=== PATIENT | male | born 1935 | race Caucasian/White ===

== ENCOUNTER 2016-05-23 15:31 | Inpatient (IN) | payer MEDICARE, OTHER ==
[2016-05-23] MEDS ORDERED: ASPIRIN 81 MG CHEWABLE TABLETS PO ONE (16:27)
--- NOTE | 2016-05-23 16:27 | PDOC ---
History of Present Illness - General History Source: Patient Exam Limitations: No Limitations - History of Present Illness Initial Comments: 05/23/16 16:52 The patient is a 80 yo M with significant past medical history of diabetes and hypertension who presents to the emergency department with chest pain for 5 days. The patient states he was shoveling his driveway 5 days ago during the snowstorm when his pain started. His pain is sharp and intermittent in severity but always there. He also stated that the pain radiated to his right arm. The patient reports some dyspnea on exertion but is not SOB at rest. The patient states that he has little pain in the chest right now. He denies any history of chest pain or heart problems. 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 He does report some associated headache and lightheadedness. The patient denies any blurry vision. The patient denies any abdominal pain, nausea, or vomiting. He denies recent illness, fevers, or chills. The patient was seen earlier today at the clinic at [facility] and was referred to the ED. The patient took 2 ASA earlier today with slight relief of his discomfort. <Reba Barber - Last Filed: 05/23/16 16:54> <Juani Jackson - Last Filed: 05/28/16 08:17> - General Chief Complaint: Chest Pain Stated Complaint: CHEST PAIN Time Seen by Provider: 05/23/16 15:44 Past History <Reba Barber - Last Filed: 05/23/16 16:54> - Past Medical History Dementia: Yes Diabetes: Yes HTN: Yes Hypercholesterolemia: Yes Liver Disease: Yes (INFLAMMATORY DISEASE.) Other medical history: VERTIGO. - Surgical History Abdominal Surgery: Yes Appendectomy: Yes - Psycho/Social/Smoking Cessation Hx Anxiety: No Suicidal Ideation: No Smoking History: Former smoker Have you smoked in the past 12 months: No If you are a former smoker, when did you quit?: 2008 Information on smoking cessation initiated: No Hx Alcohol Use: No Drug/Substance Use Hx: No Substance Use Type: None <Juani Jackson - Last Filed: 05/28/16 08:17> - Past Medical History Allergies/Adverse Reactions: Allergies Allergy/AdvReac Type Severity Reaction Status Date / Time No Known Allergies Allergy Verified 05/23/16 15:42 Home Medications: Ambulatory Orders Aspirin [ASA -] 81 mg PO DAILY 05/23/16 Ibuprofen [Motrin -] 200 mg PO QID PRN 05/23/16 Ketoconazole 2% Cream [Nizoral 2% Cream -] 1 applic TP DAILY 05/23/16 Lisinopril 10 mg PO DAILY 05/23/16 Meclizine HCl 25 mg PO TID PRN 05/23/16 Metformin HCl 500 mg PO BID 05/23/16 Naproxen [Naprosyn -] 500 mg PO BID 05/23/16 Simvastatin 20 mg PO HS 05/23/16 Vardenafil HCl [Levitra] 10 mg PO PRN PRN 05/23/16 Zolpidem Tartrate 5 mg PO HS 05/23/16 Review of Systems - Review of Systems Able to Perform ROS?: Yes Comments:: 05/23/16 16:52 GENERAL/CONSTITUTIONAL: No fever or chills. No weakness. HEAD, EYES, EARS, NOSE AND THROAT: No change in vision. No ear pain or discharge. No sore throat. CARDIOVASCULAR: +Chest pain, +dyspnea on exertion. RESPIRATORY: No cough, wheezing, or hemoptysis. GASTROINTESTINAL: No nausea, vomiting, diarrhea or constipation. GENITOURINARY: No dysuria, frequency, or change in urination. MUSCULOSKELETAL: No joint or muscle swelling or pain. No neck or back pain. SKIN: No rash NEUROLOGIC: +Headache, +lightheadedness. No vertigo, loss of consciousness, or change in strength/sensation. ENDOCRINE: No increased thirst. No abnormal weight change. HEMATOLOGIC/LYMPHATIC: No anemia, easy bleeding, or history of blood clots. ALLERGIC/IMMUNOLOGIC: No hives or skin allergy. <Reba Barber - Last Filed: 05/23/16 16:54> *Physical Exam - Vital Signs Last Vital Signs Temp Pulse Resp BP Pulse Ox 96.5 F L 74 14 160/88 98 05/23/16 15:41 05/23/16 15:41 05/23/16 15:41 05/23/16 15:41 05/23/16 15:41 - Physical Exam Comments: 05/23/16 16:55 GENERAL: Awake, alert, and fully oriented, in no acute distress HEAD: No signs of trauma EYES: PERRLA, EOMI, sclera anicteric, conjunctiva clear ENT: Auricles normal inspection, hearing grossly normal, nares patent, oropharynx clear without exudates. Moist mucosa NECK: Normal ROM, supple, no lymphadenopathy, JVD, or masses LUNGS: Breath sounds equal, clear to auscultation bilaterally. No wheezes, and no crackles HEART: Regular rate and rhythm, normal S1 and S2, no murmurs, rubs or gallops ABDOMEN: Soft, nontender, normoactive bowel sounds. No guarding, no rebound. No masses EXTREMITIES: Normal range of motion, no edema. No clubbing or cyanosis. No cords, erythema, or tenderness NEUROLOGICAL: Cranial nerves II through XII grossly intact. Normal speech, normal gait SKIN: Warm, Dry, normal turgor, no rashes or lesions noted. <Reba Barber - Last Filed: 05/23/16 16:54> - Vital Signs Last Vital Signs Temp Pulse Resp BP Pulse Ox 96.5 F L 74 14 160/88 98 05/23/16 15:41 05/23/16 15:41 05/23/16 15:41 05/23/16 15:41 05/23/16 15:41 <Juani Jackson - Last Filed: 05/28/16 08:17> ED Treatment Course - LABORATORY CBC & Chemistry Diagram: 05/24/16 05:35 05/24/16 05:35 - RADIOLOGY Radiology Studies Ordered: Category Date Time Status CHEST X-RAY PORTABLE* [RAD] Stat Radiology 05/23/16 15:46 Ordered <Juani Jackson - Last Filed: 05/28/16 08:17> Medical Decision Making - Medical Decision Making Pt sent for exertional cp, abnormal EKG. Will admit to tele for further workup and cardio evaluation. <Juani Jackson - Last Filed: 05/28/16 08:17> *DC/Admit/Observation/Transfer - Attestations Scribe Attestion: 05/23/16 16:52 Documentation prepared by Reba Barber, acting as medical claims analyst for Juani Jackson MD. <Reba Barber - Last Filed: 05/23/16 16:54> - Discharge Dispostion Admit: Yes <Juani Jackson - Last Filed: 05/28/16 08:17> Diagnosis at time of Disposition: Chest pain Qualifiers: Chest pain type: unspecified Qualified Code(s): R07.9 - Chest pain, unspecified - Discharge Dispostion Disposition: TRANSFER ACUTE CARE/OTHER HOSP Condition at time of disposition: Stable
[2016-05-23] MEDS ORDERED: ASPIRIN 81 MG CHEWABLE TABLETS ONE (16:41)
[2016-05-23 17:35] LABS: BASOPHIL 0.7 % (0-2.0); EOSINOPHIL 2.5 % (0-4.5); MCH 30.4 pg (25.7-33.7); MCHC 33.3 g/dl (32.0-35.9); MEAN CELL VOLUME 91.3 fl (80-96); NEUTROPHILS 43.9 % (42.8-82.8); PLATELET COUNT 207 K/MM3 (134-434); RDW 13.4 % (11.9-15.9); WHITE BLOOD COUNT 5.5 K/mm3 (4.0-10.0)
[2016-05-23 18:05] LABS: INR 1.02 (0.82-1.09); PROTHROMBIN TIME (PATIENT) 11.2 SEC (9.98-11.88)
[2016-05-23 18:16] LABS: ALBUMIN 4.1 g/dl (3.4-5.0); ANION GAP 9 (8-16); BILIRUBIN,TOTAL 0.8 mg/dL (0.2-1.0); CALCIUM 8.4 mg/dL (8.5-10.1); CO2 25 mmol/L (21-32); GLUCOSE,RANDOM 130 mg/dL (74-106); SGOT/AST 32 U/L (15-37); SGPT/ALT 43 U/L (12-78); TOT PROT 7.5 g/dl (6.4-8.2)
[2016-05-23 18:19] LABS: ALK PHOS 85 U/L (45-117); TROPONIN I 0.12 ng/ml (0.00-0.05)
--- NOTE | 2016-05-23 19:03 | PN ---
<Jb Elizabeth - Last Filed: 05/23/16 19:03> Teaching Attending Note Name of Resident: Es Castillo ATTENDING PHYSICIAN STATEMENT I saw and evaluated the patient. I reviewed the resident's note and discussed the case with the resident. I agree with the resident's findings and plan as documented. SUBJECTIVE: OBJECTIVE: ASSESSMENT AND PLAN: <SudhaDakota - Last Filed: 05/23/16 20:35> Teaching Attending Note ATTENDING PHYSICIAN STATEMENT I saw and evaluated the patient. I reviewed the resident's note and discussed the case with the resident. I agree with the resident's findings and plan as documented. SUBJECTIVE: Patient is a 80 year old male, former smoker, with a past medical history of NIDDM, HTN, HLD, and vertigo who presented to the ED with chest pain for 5 days. The patient stated that he was shoveling his driveway when he started experiencing right sided chest tightness. The patient described the pain as intermittent in nature and radiating to the right arm. The patient also report dyspnea on exertion. He also notes that he presented to a clinic today and was evaluated for the chest pain and reports that his ECG had abnormalities. Patient denies having ECHO or stress test in the past. Denies fever, chills, nausea, vomiting, diarrhea, constipation, and headache. OBJECTIVE: Physical: VS: Last Vital Signs Temp Pulse Resp BP Pulse Ox 96.5 F L 74 16 121/79 98 05/23/16 15:41 05/23/16 16:55 05/23/16 16:55 05/23/16 16:55 05/23/16 16:55 GEN: NAD HEENT: NCAT, PERRL CARD: RRR, S1 S2 RESP: CTAB ABD: NT, BWS x4 EXT: - CCE Labs: CBCD WBC 5.5 K/mm3 (4.0-10.0) 05/23/16 15:50 RBC 4.96 M/mm3 (4.00-5.60) 05/23/16 15:50 Hgb 15.1 GM/dL (11.7-16.9) 05/23/16 15:50 Hct 45.3 % (35.4-49) 05/23/16 15:50 MCV 91.3 fl (80-96) 05/23/16 15:50 MCHC 33.3 g/dl (32.0-35.9) 05/23/16 15:50 RDW 13.4 % (11.9-15.9) 05/23/16 15:50 Plt Count 207 K/MM3 (134-434) 05/23/16 15:50 MPV 8.0 fl (7.5-11.1) 05/23/16 15:50 CMP Sodium 139 mmol/L (136-145) 05/23/16 15:50 Potassium 4.0 mmol/L (3.5-5.1) 05/23/16 15:50 Chloride 105 mmol/L (98-107) 05/23/16 15:50 Carbon Dioxide 25 mmol/L (21-32) 05/23/16 15:50 Anion Gap 9 (8-16) 05/23/16 15:50 BUN 13 mg/dL (7-18) 05/23/16 15:50 Creatinine 1.0 mg/dL (0.7-1.3) 05/23/16 15:50 Creat Clearance w eGFR > 60 (>60) 05/23/16 15:50 Calcium 8.4 mg/dL (8.5-10.1) L 05/23/16 15:50 Total Bilirubin 0.8 mg/dL (0.2-1.0) 05/23/16 15:50 AST 32 U/L (15-37) 05/23/16 15:50 ALT 43 U/L (12-78) 05/23/16 15:50 Alkaline Phosphatase 85 U/L (45-117) 05/23/16 15:50 Total Protein 7.5 g/dl (6.4-8.2) 05/23/16 15:50 Albumin 4.1 g/dl (3.4-5.0) 05/23/16 15:50 ECG Impression: NSR TWI V1-V6 No ST elevations ASSESSMENT AND PLAN: Patient is a 80 year old male with a past medical history of NIDDM, HTN, HLD, and vertigo who presented with chest pain being admitted for NSTEMI. 1) NSTEMI - Heart score 7 - Trend troponins/ECG - Lovenox 80 bid - Plavix - Aspirin - Morphine/nitro prn chest pain - Cardiology consult - Oxygen - Beta rm - ECHO complete 2) Hypertension - Lisinopril - Beta rm 3) HDL - Check lipid panel - Continue with statin 4) Diabetes - Check A1C - Finger sticks - RAISS 5) Vertigo - Continue with meclizine prn 6) Questionable history ED - Hold Vardenafil due to possible hypotension with added BP med 7)DVT - Lovenox Admit to med tele Documentation prepared by Dakota Haley, acting as adjunct faculty for medical terminology for Jb Elizabeth D.O.
[2016-05-23] MEDS ORDERED: CLOPIDOGREL BISULFATE 300 MG TABLET PO ONE (20:41)
[2016-05-23] MEDS ORDERED: NITROGLYCERIN SUBLINGUAL 1/200 0.3 MG BTL SL PRN (20:42)
[2016-05-23] MEDS ORDERED: morphine CARPU-JECT 2 MG/1 ML DISP.SYRIN IVPUSH PRN (20:43)
--- NOTE | 2016-05-23 20:45 | MSN ---
Admitting History and Physical - Primary Care Physician PCP: Dr. Moreno - Admission Chief Complaint: Chest pain History of Present Illness: 80 year old male with past medical history of NIDDM, HTN and vertigo presents with 5 days of right sided non-radiating, tight chest pain that occurred while he was shoveling the driveway. The pain is not constant and only occurs when he exerts himself. He says he has had new onset dyspnea with exertion since he first experienced the pain that gets better when he sits for 5-10 minutes. He went to his PCP this afternoon and was referred to [facility] for further testing. He has had a cough at night when he goes to bed. He normally sleeps with two pillows at night. He received two aspirin today which helped. Nothing makes the pain worse except when he exerts himself. He denies fever, chills, recent illness, back pain, n/v, diarrhea and loss of appetite. 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 Cardiovascular: Yes: HTN Pulmonary: Yes: Other Endocrine: Yes: Diabetes Mellitus (Non insulin dependent) - Past Surgical History Past Surgical History: Yes: Appendectomy - Smoking History Smoking history: Former smoker Have you smoked in the past 12 months: No Aproximately how many cigarettes per day: 20 If you are a former smoker, when did you quit?: 2001 - Alcohol/Substance Use Hx Alcohol Use: Yes Number of Drinks Daily: 1 - Social History Usual Living Arrangement: Yes: With Child Home Medications - Allergies Allergies/Adverse Reactions: Allergies Allergy/AdvReac Type Severity Reaction Status Date / Time No Known Allergies Allergy Verified 05/23/16 15:42 - Home Medications Home Medications: Ambulatory Orders Aspirin [ASA -] 81 mg PO DAILY 05/23/16 Ibuprofen [Motrin -] 200 mg PO QID PRN 05/23/16 Ketoconazole 2% Cream [Nizoral 2% Cream -] 1 applic TP DAILY 05/23/16 Lisinopril 10 mg PO DAILY 05/23/16 Meclizine HCl 25 mg PO TID PRN 05/23/16 Metformin HCl 500 mg PO BID 05/23/16 Naproxen [Naprosyn -] 500 mg PO BID 05/23/16 Simvastatin 20 mg PO HS 05/23/16 Vardenafil HCl [Levitra] 10 mg PO PRN PRN 05/23/16 Zolpidem Tartrate 5 mg PO HS 05/23/16 Review of Systems - Review of Systems Constitutional: reports: No Symptoms Eyes: reports: No Symptoms Cardiovascular: reports: Chest Pain Respiratory: reports: Cough, Exercise Intolerance, SOB on Exertion Gastrointestinal: reports: No Symptoms Genitourinary: reports: No Symptoms Musculoskeletal: reports: No Symptoms Neurological: reports: Dizziness, Headache Endocrine: reports: No Symptoms Physical Examination Vital Signs: Vital Signs Temperature 96.5 F L 05/23/16 15:41 Pulse Rate 68 05/23/16 19:50 Respiratory Rate 20 05/23/16 19:50 Blood Pressure 132/73 05/23/16 19:50 O2 Sat by Pulse Oximetry (%) 98 05/23/16 19:50 Constitutional: Yes: Well Nourished, No Distress, Calm Eyes: Yes: WNL HENT: Yes: Atraumatic, Normocephalic Cardiovascular: Yes: Regular Rate and Rhythm Respiratory: Yes: Regular, Other (Poor airflow throughout lungs) Gastrointestinal: Yes: WNL, Normal Bowel Sounds, Soft Extremities: Yes: WNL Edema: No Integumentary: Yes: Tattoos Neurological: Yes: WNL, Alert, Oriented Labs: Troponin 0.12 Imaging - Results Chest X-ray: Report Reviewed, Image Reviewed (No acute process) EKG: Report Reviewed, Image Reviewed (ST segment depression) Assessment/Plan 80 year old man with past medical history of NIDDM, HTN and vertigo who presnts with 5 days of right sided chest pain. Chest pain -Admit to telemetry and observation -Supplimental 02, nitroglycerin, metoprolol, atorvastatin, aspirin, lovenox -Trend troponin -TSH with free T4 -Lipid panel -Echo -Cardiology consult -Low salt diet
[2016-05-23] MEDS ORDERED: MECLIZINE HCL 25 MG TABLET (FP) PO PRN (20:46)
--- NOTE | 2016-05-23 21:01 | HP ---
CHIEF COMPLAINT: "I came because of chest pain" PCP: Dr Moreno HISTORY OF PRESENT ILLNESS: This is a 80 yo M with PMH of NIDDM, HTN, questionable CHF and vertigo, who presents due to chest pain. He was shoveling snow 5 days ago when he started experiencing sharp R sided chest pain, nonradiating with some associated sob and dizziness. pain resolved spontaneously after 10 minutes of rest. He has since been experiencing similar exertional pain on and off, relieved by rest. his exercise tolerance has decreased. He also noticed some nocturnal cough over the past 5 days w/o orthopnea. He has had mild chest pain on rare occasions before but not this severe or frequent. He denies associated palpitations, LOC, diaphoresis, n/v, abd pain, anorexia, weight gain or edema. He denies diarrhea, constipation, dysuria ore recent illness. He was seen by his pcp earlier today, who did an EKG and referred him to ED because of abnormal results. In Ed his chest pain resolved spontaneously. ER course was notable for: (1)labs (2)EKG CXR (3)asa Recent Travel: denies PAST MEDICAL HISTORY: as above PAST SURGICAL HISTORY: appendectomy Social History: lives with daughter Smoking:past 50 pack year smoker Alcohol:1 shot of lawrence per night Drugs:denies Family History: Allergies No Known Allergies Allergy (Verified 05/23/16 15:42) HOME MEDICATIONS: Medication Instructions Recorded Aspirin [ASA -] 81 mg PO DAILY 05/23/16 Ibuprofen [Motrin -] 200 mg PO QID PRN 05/23/16 Ketoconazole 2% Cream [Nizoral 2% 1 applic TP DAILY 05/23/16 Cream -] Lisinopril 10 mg PO DAILY 05/23/16 Meclizine HCl 25 mg PO TID PRN 05/23/16 Metformin HCl 500 mg PO BID 05/23/16 Naproxen [Naprosyn -] 500 mg PO BID 05/23/16 Simvastatin 20 mg PO HS 05/23/16 Vardenafil HCl [Levitra] 10 mg PO PRN PRN 05/23/16 Zolpidem Tartrate 5 mg PO HS 05/23/16 REVIEW OF SYSTEMS CONSTITUTIONAL: Absent: fever, chills, diaphoresis, generalized weakness,loss of appetite, weight change HEENT: Absent: rhinorrhea, nasal congestion, throat pain CARDIOVASCULAR: Absent: syncope, palpitations, irregular heart rate, lightheadedness, peripheral edema RESPIRATORY: Absent: wheezing, stridor, hemoptysis GASTROINTESTINAL: Absent: abdominal pain, abdominal distension, nausea, vomiting, diarrhea, constipation GENITOURINARY: Absent: dysuria MUSCULOSKELETAL: Absent: myalgia, arthralgia SKIN: Absent: rash HEMATOLOGIC/IMMUNOLOGIC: Absent: easy bleeding, easy bruising ENDOCRINE: Absent: unexplained weight gain, unexplained weight loss, heat intolerance, cold intolerance NEUROLOGIC: Absent: headache, focal weakness or paresthesias, dizziness, PSYCHIATRIC: Absent: anxiety, depression PHYSICAL EXAMINATION Vital Signs - 24 hr 05/23/16 19:50 Pulse Rate [ 68 Left Radial] Respiratory 20 Rate Blood Pressure 132/73 [Right Arm] O2 Sat by Pulse 98 Oximetry (%) GENERAL: Awake, alert, and fully oriented, in no acute distress. HEAD: Normal with no signs of trauma. EYES: Pupils equal, round and reactive to light, extraocular movements intact, sclera anicteric, conjunctiva clear. EARS, NOSE, THROAT: Moist mucous membranes. NECK: supple without JVD LUNGS: diffusely reduced air movement, coarse breath sounds. No ronchi HEART: Regular rate and rhythm, normal S1 and S2 ABDOMEN: Soft, nontender, mildly distended, normoactive bowel sounds. MUSCULOSKELETAL: No CVA tenderness. UPPER EXTREMITIES: 2+ pulses, warm, well-perfused. No cyanosis. No peripheral edema. LOWER EXTREMITIES: 2+ pulses, warm, well-perfused. No calf tenderness. No peripheral edema. NEUROLOGICAL: Cranial nerves II-XII grossly intact. Normal speech. PSYCHIATRIC: Cooperative. Good eye contact. Appropriate mood and affect. SKIN: Warm, dry Laboratory Tests 05/23/16 05/23/16 15:50 15:50 WBC 5.5 Hgb 15.1 Hct 45.3 Plt Count 207 Sodium 139 Potassium 4.0 Chloride 105 Carbon Dioxide 25 Anion Gap 9 BUN 13 Creatinine 1.0 Creat Clearance w eGFR > 60 Random Glucose 130 H Calcium 8.4 L Total Bilirubin 0.8 AST 32 ALT 43 Alkaline Phosphatase 85 Creatine Kinase 141 Troponin I 0.12 H Total Protein 7.5 Albumin 4.1 ASSESSMENT/PLAN: This is a 80 yo M with PMH of NIDDM, HTN, questionable CHF and vertigo, who presents due to chest pain on exertion CXR unremarkable EKG: prolonged QT, st inversions in leads v1-6 trop 0.12 NSTEMI -in setting of stable angina -abnormal EKG -HEART score =7 -trop 0.12; trend -tele monitoring -plavix 300 now, then 74 daily -asa loaded, 81 daily -coreg -marie 80 bid -NTG PRN -Morphine PRN -O2 NC PRN -TTE -TFT's -Cardio consult -will likely require stress test Questionable hx of CHF -patient appears dry; bun/creat 25/05 -no basilar ronchi, no LE edema -unlikely in CHF -f/u echo NIDDM -A1c -fingerstick TIDAC -novolog sliding scale HTN -Lisinopril HLD -atorvastatin 20 HS -Lipid panel Vertigo -meclozine prn FEN no IVF lytes stable DVT GI PPX: marie, scd, diet Diabetic diet Dispo: admit to med richar Problem List - Problem (1) Chest pain Code(s): R07.9 - CHEST PAIN, UNSPECIFIED Qualifiers: Chest pain type: unspecified Qualified Code(s): R07.9 - Chest pain, unspecified (2) Diabetes Code(s): E11.9 - TYPE 2 DIABETES MELLITUS WITHOUT COMPLICATIONS (3) HTN (hypertension) Code(s): I10 - ESSENTIAL (PRIMARY) HYPERTENSION (4) HLD (hyperlipidemia) Code(s): E78.5 - HYPERLIPIDEMIA, UNSPECIFIED (5) NSTEMI (non-ST elevated myocardial infarction) Code(s): I21.4 - NON-ST ELEVATION (NSTEMI) MYOCARDIAL INFARCTION Visit type - Emergency Visit Emergency Visit: Yes ED Registration Date: 05/23/16 Care time: The patient presented to the Emergency Department on the above date and was hospitalized for further evaluation of their emergent condition. - New Patient This patient is new to me today: Yes Date on this admission: 05/23/16 - Critical Care Critical Care patient: No
[2016-05-23] MEDS ORDERED: ATORVASTATIN CA 20 MG TABLET (FP) PO SCH (22:00)
[2016-05-23] MEDS ORDERED: ZOLPIDEM TARTRATE 5 MG TABLET PO PRN (22:00)
[2016-05-23] MEDS: ENOXAPARIN NA (PORCINE) 80 MG/0.8 ML DISP.SYRIN SQ SCH (23:11)
[2016-05-23] MEDS: CARVEDILOL 3.125 MG TABLET (FP) PO SCH (23:11)
[2016-05-24 01:04] VITALS: BMI 29.4
[2016-05-24] MEDS ORDERED: INSULIN SLIDING SCALE (NOVOLOG) 1 VIAL SQ SCH ×2 (07:00→11:00)
[2016-05-24 07:41] LABS: MCH 31.3 pg (25.7-33.7); MCHC 33.9 g/dl (32.0-35.9); MEAN CELL VOLUME 92.4 fl (80-96); MEAN PLT VOLUME 7.9 fl (7.5-11.1); PLATELET COUNT 186 K/MM3 (134-434); RDW 13.3 % (11.9-15.9); WHITE BLOOD COUNT 4.8 K/mm3 (4.0-10.0)
[2016-05-24 08:32] LABS: THYROID STIMULATING HORMONE 2.18 uIU/ml (0.358-3.74)
[2016-05-24 09:13] LABS: CALCIUM 8.7 mg/dL (8.5-10.1); CREATININE 1.1 mg/dL (0.7-1.3); MAGNESIUM 2.3 mg/dL (1.8-2.4); PHOSPHOROUS 3.7 mg/dL (2.5-4.9); TROPONIN I 0.08 ng/ml (0.00-0.05)
[2016-05-24] MEDS ORDERED: LISINOPRIL 10 MG TABLET (FP) PO SCH (10:00)
[2016-05-24] MEDS ORDERED: CLOPIDOGREL BISULFATE 75 MG TABLET (FP) PO SCH (10:00)
[2016-05-24] MEDS ORDERED: ASPIRIN 81 MG CHEWABLE TABLETS PO SCH (10:00)
--- NOTE | 2016-05-24 10:01 | PN ---
Physical Exam: SUBJECTIVE: Patient seen and examined. No chest pain or SOB. Complaining of neck pain. OBJECTIVE: Hospital day #1 for this 80 year old male with a history of NIDDM, HTN, ?CHF, and vertigo who presented to the ED yesterday complaining of intermittent chest pain and decreased ET for 5 days. Workup to date includes: -EKG: NSR at 73bpm, T inversions V1-V6, I, possible anterolateral ischemia -Troponin initially 0.12, then 0.11, then 0.08 -HgbA1C 8.2 -CXR: No acute process Vital Signs Period Temp Pulse Resp BP Sys/[place] Pulse Ox Last 24 Hr 97.9 F-97.9 F 63-73 20-20 100-127/57-70 95 GENERAL: The patient is awake, alert, and fully oriented, in no acute distress. HEAD: Normal with no signs of trauma. EYES: PERRL, extraocular movements intact, sclera anicteric, conjunctiva clear. No ptosis. ENT: Ears normal, nares patent, oropharynx clear without exudates, moist mucous membranes. NECK: Trachea midline, full range of motion, supple. No midline vertebral tenderness. LUNGS: Breath sounds equal, clear to auscultation bilaterally, no wheezes, no crackles, no accessory muscle use. HEART: Systolic murmur. Regular rate and rhythm, S1, S2, rub or gallop. ABDOMEN: Soft, nontender, nondistended, normoactive bowel sounds, no guarding, no rebound, no hepatosplenomegaly, no masses. EXTREMITIES: 2+ pulses, warm, well-perfused, no edema. NEUROLOGICAL: Cranial nerves II through XII grossly intact. Normal speech, gait not observed. PSYCH: Normal mood, normal affect. SKIN: Warm, dry, normal turgor, no rashes or lesions noted Laboratory Results - last 24 hr 05/23/16 05/24/16 05/24/16 23:00 05:35 05:35 WBC 4.8 RBC 4.97 Hgb 15.6 Hct 46.0 MCV 92.4 MCHC 33.9 RDW 13.3 Plt Count 186 MPV 7.9 Sodium 139 Potassium 4.2 Chloride 103 Carbon Dioxide 24 Anion Gap 12 BUN 13 Creatinine 1.1 POC Glucometer Random Glucose 221 H D Hemoglobin A1c % Calcium 8.7 Phosphorus 3.7 Magnesium 2.3 Troponin I 0.11 H 0.08 H TSH Free T4 05/24/16 05/24/16 05/24/16 05:35 05:35 05:35 WBC RBC Hgb Hct MCV MCHC RDW Plt Count MPV Sodium Potassium Chloride Carbon Dioxide Anion Gap BUN Creatinine POC Glucometer Random Glucose Hemoglobin A1c % 8.2 H Calcium Phosphorus Magnesium Troponin I TSH 2.18 Free T4 1.00 05/24/16 06:09 WBC RBC Hgb Hct MCV MCHC RDW Plt Count MPV Sodium Potassium Chloride Carbon Dioxide Anion Gap BUN Creatinine POC Glucometer 227 Random Glucose Hemoglobin A1c % Calcium Phosphorus Magnesium Troponin I TSH Free T4 Active Medications Generic Name Dose Route Start Last Admin Trade Name Freq PRN Reason Stop Dose Admin Aspirin 81 mg 05/24/16 10:00 Asa - PO DAILY [facility] Atorvastatin Calcium 20 mg 05/23/16 22:00 05/23/16 23:11 Lipitor - PO 20 mg HS REILLY Administration Carvedilol 3.125 mg 05/23/16 22:00 05/23/16 23:11 Coreg - PO 3.125 mg BID REILLY Administration Clopidogrel Bisulfate 75 mg 05/24/16 10:00 Plavix - PO DAILY [facility] Enoxaparin Sodium 80 mg 05/23/16 22:00 05/23/16 23:11 Lovenox - SQ 80 mg BID REILLY Administration Insulin Aspart 1 vial 05/24/16 07:00 05/24/16 06:42 Novolog Vial Sliding Scale - SQ Not Given TIDAC [facility] Protocol Lisinopril 10 mg 05/24/16 10:00 Prinivil PO DAILY [facility] Meclizine HCl 25 mg 05/23/16 20:46 Antivert - PO Q8H PRN dizziness Morphine Sulfate 0.5 mg 05/23/16 20:43 Morphine Injection - IVPUSH Q30M PRN PAIN Zolpidem Tartrate 5 mg 05/23/16 22:00 Ambien - PO HS PRN ASSESSMENT/PLAN: 80 year old male admitted with chest pain. 1. Cardiac NSTEMI -Continue telemetry monitoring -Troponins trending down -Continue Lovenox 80 bid -Continue Plavix 75mg daily -Continue Aspirin 81mg daily (received 324mg yesterday) -Continue morphine/ntg prn chest pain -Continue Carvedilol 3.125mg bid -Increase Atorvastatin to 80mg hs -Supplemental O2 as needed to maintain saturation -Follow up echocardiogram -Transfer to [facility] for cath when bed available HTN -At goal -Continue Lisinopril, Carvedilol HLD -Follow up lipid profile -Atorvastatin as above 2. Endocrine: DM -A1C 8.2% -FSACHS -ISS -Diabetic diet 3. Neuro: Vertigo -No active issues -Continue Meclizine prn Neck pain -Mild, paravertebral -Trial of Tylenol 4. : ED -Hold Vardenafil 5. DVT ppx -Therapeutic Lovenox Dispo: Transfer for cardiac cath. Visit type - Emergency Visit Emergency Visit: Yes ED Registration Date: 05/23/16 Care time: The patient presented to the Emergency Department on the above date and was hospitalized for further evaluation of their emergent condition. - New Patient This patient is new to me today: Yes Date on this admission: 05/24/16 - Critical Care Critical Care patient: No - Discharge Referral Referred to [facility] Med [facility] No
[2016-05-24] MEDS: CARVEDILOL 3.125 MG TABLET (FP) PO SCH (10:33)
--- NOTE | 2016-05-24 11:19 | EKG ---
Test Reason : Blood Pressure : / mmHG Vent. Rate : 079 BPM Atrial Rate : 079 BPM P-R Int : 176 ms QRS Dur : 094 ms QT Int : 414 ms P-R-T Axes : 019 -23 065 degrees QTc Int : 474 ms POOR DATA QUALITY, INTERPRETATION MAY BE ADVERSELY AFFECTED NORMAL SINUS RHYTHM T WAVE ABNORMALITY, CONSIDER ANTEROLATERAL ISCHEMIA PROLONGED QT ABNORMAL ECG NO PREVIOUS ECGS AVAILABLE Confirmed by DM EDDY, NELLY ([id number]) on 05/24/2016 11:19:17 AM Referred By: Confirmed By:NELLY CHAIDEZ MD
[2016-05-24] MEDS: ENOXAPARIN NA (PORCINE) 80 MG/0.8 ML DISP.SYRIN SQ SCH (11:35)
--- NOTE | 2016-05-24 11:47 | CONSULT ---
Consult Consult Specialty:: Cardiology Referred by:: Hospitalist Reason for Consultation:: Chest pain - History of Present Illness Chief Complaint: Chest pain, sob History of Present Illness: 80 year old man with a history of HTN, HLD, DM II, past heavy smoker, presents with chest pain and sob. As per pts daughter he has had holt since 03/2016. Pt. states that this past saturday while shoveling snow he had acute onset right sided chest pain. He stopped shoveling and walked into the house, when walking up the stairs he became very sob. he rested and his symptoms resolved. for the past few days he has felt intermittent chest pain and holt. he finally saw his pmd yesterday and his EKG was noted to be abnormal thus they sent him to the ER. Pt. seen and examined today in [facility]. he states he is currently asymptomatic. states his symptoms resolved since being admitted to the hospital. Denies any pnd, orthopnea, or LE edema. - History Source History Provided By: Patient, Family Member, Medical Record Limitations to Obtaining History: Language Barrier - Past Medical History [employer] WORKER: Yes: Vertigo Cardio/Vascular: Yes: HTN, Hyperlipdemia Pulmonary: Yes: Other Endocrine: Yes: Diabetes Mellitus (Non insulin dependent) - Past Surgical History Past Surgical History: Yes: Appendectomy - Alcohol/Substance Use Hx Alcohol Use: Yes Number of Drinks Daily: 1 - Smoking History Smoking history: Former smoker Have you smoked in the past 12 months: No Aproximately how many cigarettes per day: 20 If you are a former smoker, when did you quit?: 2001 - Social History Usual Living Arrangement: With Child ADL: Independent History of Recent Travel: No Home Medications - Allergies Allergies/Adverse Reactions: Allergies Allergy/AdvReac Type Severity Reaction Status Date / Time No Known Allergies Allergy Verified 05/23/16 15:42 - Home Medications Home Medications: Ambulatory Orders Aspirin [ASA -] 81 mg PO DAILY 05/23/16 Ibuprofen [Motrin -] 200 mg PO QID PRN 05/23/16 Ketoconazole 2% Cream [Nizoral 2% Cream -] 1 applic TP DAILY 05/23/16 Lisinopril 10 mg PO DAILY 05/23/16 Meclizine HCl 25 mg PO TID PRN 05/23/16 Metformin HCl 500 mg PO BID 05/23/16 Naproxen [Naprosyn -] 500 mg PO BID 05/23/16 Simvastatin 20 mg PO HS 05/23/16 Vardenafil HCl [Levitra] 10 mg PO PRN PRN 05/23/16 Zolpidem Tartrate 5 mg PO HS 05/23/16 Family Disease History - Family Disease History Family History: Denies Review of Systems - Review of Systems Constitutional: denies: No Symptoms, Chills, Diaphoresis, Fever, Lethargy, Loss of Appetite, Malaise, Night Sweats, Unintentional Wgt. Loss, Weakness, Other Eyes: denies: No Symptoms, Blind Spots, Blurred Vision, Double Vision, Eye Pain , Floaters, Photophobia, Recent Change in Vision, Other HENT: denies: No Symptoms, Difficult Swallowing, Ear Discharge, Ear Pain, Epistaxis, Gingival Bleeding, Hearing Loss, Mouth Swelling, Nasal Congestion, Ocular Prosthesis, Throat Pain, Toothache, Ringing in Ears, Other Neck: denies: No Symptoms, Decreased ROM, Lumps, Pain on Movement, Stiffness, Swollen Glands, Tenderness, Other Cardiovascular: reports: Chest Pain, Shortness of Breath. denies: No Symptoms, Edema, Palpitations, Other Respiratory: reports: Exercise Intolerance, SOB, SOB on Exertion. denies: No Symptoms, Cough, Hemoptysis, Orthopnea, PND, Snoring, Wheezing, Other Gastrointestinal: denies: No Symptoms, Abdominal Pain, Bloating, Constipation, Diarrhea, Dysphagia, Indigestion, Melena, Nausea, Rectal Bleeding, Vomiting, Vomiting Blood, Other Genitourinary: denies: No Symptoms, Burning, Discharge, Dysuria, Flank Pain, Frequency, Hematuria, Incontinence, Lesions, Menses, Pain, Testicular Mass, Testicular Pain, Testicular Swelling, Urgency, Vaginal Bleeding, Other Breasts: denies: No Symptoms Reported, See HPI, Breast Implants, Discharge from Nipple, Lumps, Pain, Skin Changes, Other Musculoskeletal: denies: No Symptoms, Back Pain, Crepitus, Decreased ROM, Extremity Pain, Joint Pain, Joint Swelling, Muscle Pain, Muscle Cramps, Muscle Weakness, Other Integumentary: denies: No Symptoms, Blister, Bruising, Change in Color, Eczema, Erythema, Incision, Lesions, Lump, Pallor, Pruritis, Rash, Wound, Other Neurological: denies: No Symptoms, Change in LOC, Change in Speech, Confusion, Dizziness, Headache, Incoordination, Numbness, Parasthesia, Pre-Existing Deficit , Seizure, Syncope, Tremors, Unsteady Gait, Weakness, Other Endocrine: denies: No Symptoms, Excessive Sweating, Flushing, Increased Hunger, Increased Thirst, Intolerance to Cold, Intolerance to Heat, Unexplained Weight Gain, Unexplained Weight Loss, Other Hematology/Lymphatic: denies: No Symptoms, Easily Bruised, Excessive Bleeding, Swollen Glands, Other Psychiatric: denies: No Symptoms, Altered Sleep Pattern, Anxiety, Depression, Hallucinations, Panic, Paranoia, Suicidal, Other - Risk Factors Known Risk Factors: Yes: Diabetes Mellitus, Hypercholesterolemia, Hypertension, Smoking Vital Signs: Vital Signs Temperature 97.9 F 05/24/16 06:09 Pulse Rate 65 05/24/16 06:09 Respiratory Rate 20 05/24/16 06:09 Blood Pressure 100/60 05/24/16 06:09 O2 Sat by Pulse Oximetry (%) 95 05/23/16 21:00 Constitutional: Yes: Well Nourished, No Distress, Calm Eyes: Yes: WNL, Conjunctiva Clear, EOM Intact, PERRL HENT: Yes: WNL, Atraumatic, Normocephalic Neck: Yes: WNL, Supple, Trachea Midline Respiratory: Yes: WNL, Regular, CTA Bilaterally. No: Rales, Rhonchi, Wheezes Gastrointestinal: Yes: WNL, Normal Bowel Sounds, Soft. No: Distention, Tenderness Cardiovascular: Yes: WNL, Regular Rate and Rhythm. No: Bradycardia, Tachycardia , Pulse Irregular, Gallop, Rub, Varicosities JVD: No Carotid Bruit: No PMI: Non-Displaced Heart Sounds: Yes: S1, S2. No: Split S2, S3, S4, Clicks, Gallop, Rub, Bruit Murmur: Yes: Systolic Murmur, Grade 2. No: Diastolic Murmur Musculoskeletal: Yes: WNL Extremities: Yes: WNL Edema: No Peripheral Pulses WNL: Yes Peripheral Pulses: 2+ Left Doralis Pedis, 2+ Right Dorsalis Pedis Integumentary: Yes: WNL Neurological: Yes: WNL, Alert, Oriented, Cran Nerves II-XII Intact ...Motor Strength: WNL Psychiatric: Yes: WNL, Alert, Oriented - Other Data Labs, Other Data: CBC, BMP 05/24/16 05:35 05/24/16 05:35 INR, PTT INR 1.02 (0.82-1.09) 05/23/16 17:25 Troponin, BNP 05/23/16 05/24/16 23:00 05:35 Troponin I 0.11 H 0.08 H Troponin, BNP 05/23/16 05/24/16 23:00 05:35 Troponin I 0.11 H 0.08 H ekg-nsr 73bpm, T inversions V1-V6, I, possible anterolateral ischemia Echo: Pending Imaging - Results Chest X-ray: Report Reviewed, Image Reviewed EKG: Report Reviewed, Image Reviewed Other: Report Reviewed, Image Reviewed (tele-nsr, pvcs, episodes of likely mobitz 1 2nd deg hb) Problem List - Problems (1) Chest pain Code(s): R07.9 - CHEST PAIN, UNSPECIFIED Qualifiers: Chest pain type: unspecified Qualified Code(s): R07.9 - Chest pain, unspecified (2) Diabetes Code(s): E11.9 - TYPE 2 DIABETES MELLITUS WITHOUT COMPLICATIONS (3) HLD (hyperlipidemia) Code(s): E78.5 - HYPERLIPIDEMIA, UNSPECIFIED (4) HTN (hypertension) Code(s): I10 - ESSENTIAL (PRIMARY) HYPERTENSION (5) NSTEMI (non-ST elevated myocardial infarction) Code(s): I21.4 - NON-ST ELEVATION (NSTEMI) MYOCARDIAL INFARCTION (6) Dyspnea Code(s): R06.00 - DYSPNEA, UNSPECIFIED Assessment/Plan 80 year old man with a history of HTN, HLD, DM II, past heavy smoker, presents with chest pain and sob. Chest pain/HOLT -concerning for unstable angina/NSTEMI -ekg shows possible anterolateral ischemia -troponin slightly above upper limit of normal with normal CK level -pt was already loaded with ASA and Plavix 300mg x1 as well as full dose Lovenox -cont ASA 81mg daily and Plavix 75mg daily -cont full dose Lovenox for now -cont Lipitor and coreg and lisinopril -transfer arranged to [facility] at pts daughter request, accepted by Dr. Curiel and Dr. Oswald for cardiac cath -f/up echo from today, I briefly reviewed the images at bedside, appears to be apical hypokinesis -cont tele monitoring while inpatient
[2016-05-24] MEDS ORDERED: ACETAMINOPHEN 500 MG TABLET (FP) PO ONE (12:00)
[2016-05-24 12:10] VITALS: BP 110/64; PULSE 57; TEMP 97.8
[2016-05-24] MEDS ORDERED: ACETAMINOPHEN 500 MG TABLET (FP) ONE (14:05)
--- NOTE | 2016-05-24 17:16 | DS ---
Physical Exam: SUBJECTIVE: Patient seen and examined. Out of bed to chair, denies chest pain or shortness of breath. OBJECTIVE: Vital Signs Period Temp Pulse Resp BP Sys/[place] Pulse Ox Last 24 Hr 97.8 F-97.9 F 57-73 18-20 100-127/57-70 95-96 PHYSICAL EXAM GENERAL: The patient is awake, alert, and fully oriented, in no acute distress. HEAD: Normal with no signs of trauma. EYES: PERRL, extraocular movements intact, sclera anicteric, conjunctiva clear. ENT: Ears normal, nares patent, oropharynx clear without exudates, moist mucous membranes. NECK: Trachea midline, full range of motion, supple. LUNGS: Breath sounds equal, clear to auscultation bilaterally, no wheezes, no crackles, no accessory muscle use. HEART: Regular rate and rhythm, S1, S2 without murmur, rub or gallop. ABDOMEN: Soft, nontender, nondistended, normoactive bowel sounds, no guarding, no rebound, no hepatosplenomegaly, no masses. EXTREMITIES: 2+ pulses, warm, well-perfused, no edema. NEUROLOGICAL: Cranial nerves II through XII grossly intact. Normal speech, gait not observed. PSYCH: Normal mood, normal affect. SKIN: Warm, dry, normal turgor, no rashes or lesions noted. LABS Laboratory Results - last 24 hr 05/23/16 05/24/16 05/24/16 23:00 05:35 05:35 WBC 4.8 RBC 4.97 Hgb 15.6 Hct 46.0 MCV 92.4 MCHC 33.9 RDW 13.3 Plt Count 186 MPV 7.9 Sodium 139 Potassium 4.2 Chloride 103 Carbon Dioxide 24 Anion Gap 12 BUN 13 Creatinine 1.1 POC Glucometer Random Glucose 221 H D Hemoglobin A1c % Calcium 8.7 Phosphorus 3.7 Magnesium 2.3 Troponin I 0.11 H 0.08 H Triglycerides Cholesterol Total LDL Cholesterol HDL Cholesterol TSH Free T4 05/24/16 05/24/16 05/24/16 05:35 05:35 05:35 WBC RBC Hgb Hct MCV MCHC RDW Plt Count MPV Sodium Potassium Chloride Carbon Dioxide Anion Gap BUN Creatinine POC Glucometer Random Glucose Hemoglobin A1c % 8.2 H Calcium Phosphorus Magnesium Troponin I Triglycerides 199 H Cholesterol 238 Total LDL Cholesterol 149 HDL Cholesterol 49 TSH 2.18 Free T4 1.00 05/24/16 05/24/16 06:09 11:06 WBC RBC Hgb Hct MCV MCHC RDW Plt Count MPV Sodium Potassium Chloride Carbon Dioxide Anion Gap BUN Creatinine POC Glucometer 227 142 Random Glucose Hemoglobin A1c % Calcium Phosphorus Magnesium Troponin I Triglycerides Cholesterol Total LDL Cholesterol HDL Cholesterol TSH Free T4 HOSPITAL COURSE: This is a 80 year old male with a history of NIDDM, HTN, ?CHF, and vertigo who presented admitted yesterday with NSTEMI. Workup to date includes: -EKG: NSR at 73bpm, T inversions V1-V6, I, possible anterolateral ischemia -Troponin initially 0.12, then 0.11, then 0.08 consistent with NSTEMI -HgbA1C 8.2 -CXR: No acute process -Echocardiogram: Normal LVEF. Elevated RVSP. Apical akinesis. The patient is to be transferred to [facility] for cardiac catheterization. Date of Admission:05/23/16 Date of Discharge: 05/24/16 Minutes to complete discharge: 35 Discharge Summary Reason For Visit: CHEST PAIN Current Active Problems Chest pain (Acute) Diabetes (Acute) Dyspnea (Acute) HLD (hyperlipidemia) (Acute) HTN (hypertension) (Acute) NSTEMI (non-ST elevated myocardial infarction) (Acute) Condition: Stable - Instructions Disposition: TRANSFER ACUTE CARE/OTHER HOSP - Home Medications Comprehensive Discharge Medication List: Ambulatory Orders Aspirin [ASA -] 81 mg PO DAILY 05/23/16 Ibuprofen [Motrin -] 200 mg PO QID PRN 05/23/16 Ketoconazole 2% Cream [Nizoral 2% Cream -] 1 applic TP DAILY 05/23/16 Lisinopril 10 mg PO DAILY 05/23/16 Meclizine HCl 25 mg PO TID PRN 05/23/16 Metformin HCl 500 mg PO BID 05/23/16 Naproxen [Naprosyn -] 500 mg PO BID 05/23/16 Simvastatin 20 mg PO HS 05/23/16 Vardenafil HCl [Levitra] 10 mg PO PRN PRN 05/23/16 Zolpidem Tartrate 5 mg PO HS 05/23/16 This patient is new to me today: No Emergency Visit: Yes ED Registration Date: 05/23/16 Care time: The patient presented to the Emergency Department on the above date and was hospitalized for further evaluation of their emergent condition. Critical Care patient: No - Discharge Referral Referred to [facility] No
[2016-05-24] MEDS ORDERED: ATORVASTATIN CA 40 MG TABLET (FP) PO SCH (22:00)
== END 2016-05-24 17:08 | disposition short-term general hospital (02) | DRG 282 ==
LOC: JER 15:31 → JERBED 19:24 → UNDOADMIN 19:24 → JERBED 20:37 → J4W 20:55
PROVIDERS: ADMIT Internal Medicine; ATTEND Registered Nurse Emergency
DX: I21.4 Non-ST elevation (NSTEMI) myocardial infarction (principal); I20.0 Unstable angina; E78.5 Hyperlipidemia, unspecified; I10 Essential (primary) hypertension; R07.9 Chest pain, unspecified; Z87.891 Personal history of nicotine dependence; R42 Dizziness and giddiness; E11.9 Type 2 diabetes mellitus without complications
CPT/HCPCS: 36415; 71010-TC; 80048; 80053; 80061; 82550; 83036; 83735; 84100; 84439; 84443; 84484; 85027; 85610; 93005; 93010; 93306-TC; 99285-25